=== PATIENT | female | born 1995 | race Caucasian/White ===

== ENCOUNTER 2019-08-14 01:24 | Emergency (ER) | payer MEDICAID ==
[~2019-08-14] VITALS: Ht 162.6 cm; Wt 75.0 kg
[~2019-08-14 01:24] MED LIST: GUAN1TAB17 PO; GUAN2TAB11 PO; OLAN2.5T3 PO; SERT-153 PO
[2019-08-14 01:29] VITALS: BP 111/75
[2019-08-14] MEDS ORDERED: CEPH-572 PO (03:38)
[2019-08-14] MEDS ORDERED: cephalexin 500mg capsule PO ONE (03:40)
== END 2019-08-14 03:55 | disposition home or self-care (01) ==
LOC: ER 01:24
DX: S81.822A Laceration with foreign body, left lower leg, initial encounter (principal); L03.116 Cellulitis of left lower limb; F17.298 Nicotine dependence, other tobacco product, with other nicotine-induced disorders; Z88.1 Allergy status to other antibiotic agents; Z88.4 Allergy status to anesthetic agent; Z79.899 Other long term (current) drug therapy; W45.8XXA Other foreign body or object entering through skin, initial encounter; Y93.89 Activity, other specified; Y92.89 Other specified places as the place of occurrence of the external cause; Y99.9 Unspecified external cause status
CPT/HCPCS: 73590; 99283; 99406